=== PATIENT | male | born 1965 | race Caucasian/White ===

== ENCOUNTER 2016-10-16 05:33 | Day surgery (SDC) | payer OTHER ==
[~2016-10-16] VITALS: Ht 193 cm; Wt 108.0 kg
[2016-10-28] MEDS ORDERED: SYNTHROID100 MCG PO (11:26)
[2016-10-28] MEDS ORDERED: COZAAR DPS50 MG PO (11:26)
[2016-10-28] MEDS ORDERED: PLAVIX75 MG PO (11:26)
[2016-10-28] MEDS ORDERED: ASA CHILDREN'S81 MG PO (11:26)
[2016-10-28] MEDS ORDERED: LORTAB 7.5-3251 EACH PO (11:27)
[2016-10-28] MEDS ORDERED: PRALUENT P150 MG/1 M SQ (11:27)
[2016-10-28] MEDS ORDERED: TOPROL XL25 MG PO (11:27)
[2016-10-28] MEDS ORDERED: CRESTOR10 MG PO (11:27)
--- NOTE | 2016-10-29 08:53 | OR ---
ADMIT: 10/16/2016 RM/LOC: [facility] MR#: [id number] 2620 [facility] [address] [place] [phone] RADHA ZAMUDIO [address] [place] [address] Operative/Delivery Room Report SEX: M AGE: 51 : 1965 SURGERY DATE: 10/16/2016 SURGEON: Alexi Cade MD IMMIGRATION COORDINATOR: CARI Hernandez PRE-PROCEDURE DIAGNOSIS: Left inguinal hernia. POSTPROCEDURE DIAGNOSES: 1. Direct left inguinal hernia. 2. Small indirect right inguinal hernia. PROCEDURE: Laparoscopic bilateral inguinal hernia repair with mesh. INDICATIONS: The patient is a 51-year-old, who has had a previous open right inguinal hernia repair many years ago, who has a symptomatic reducible left inguinal hernia, presents for laparoscopic repair. DESCRIPTION OF PROCEDURE: The patient was taken to the operative room, general endotracheal anesthesia was induced. The patient's abdomen was prepped and draped in normal sterile fashion. The case was begun by making a transverse, supraumbilical, 3 cm skin incision using #11 blade. Dissection was carried down through subcutaneous fat using S-shaped retractors. The anterior abdominal wall fascia to the left side of midline was incised vertically with #11 blade for about a centimeter and a half. I retracted the rectus muscle laterally, placed the preperitoneal balloon and the preperitoneal space and insufflated under direct vision. A camera port was placed. CO2 was insufflated and two midline 5 mm ports were placed under direct vision. The case was begun by dissecting out David's ligament bilaterally. I dissected out lateral to the epigastric vessels bilaterally. On the left side, there was a direct inguinal hernia defect that was easily reducible and a small indirect right inguinal hernia defect. I placed medium right and left preformed 3D polypropylene meshes into the preperitoneal space and covered each respective for easily and nicely. I held the lower edge of the mesh as we desufflated the preperitoneal space with our mesh in excellent position. I removed our ports. I injected 0.5% Marcaine subdermally and subfascially for postoperative analgesia, closed the umbilical fascial incision with a running 0 Vicryl suture and the skin sites with interrupted 4- 0 Vicryl subcuticular skin stitches. Wounds were cleaned and dried and dressed. The patient tolerated the procedure without difficulty, transferred to recovery room in good condition. Alexi Cade MD/ beti JOB #: [id number] CC: Alexi Cade, Attending Physician ADMIT: 10/16/2016 RM/LOC: [facility] MR#: [id number] [address] [address] [place] [address] Operative/Delivery Room Report SEX: M AGE: 51 : 1965 Kennedy Avila Family Physician
== END 2016-10-16 10:00 | disposition home or self-care (01) ==
LOC: SSS 05:33
PROC: 0YUA4JZ Supplement Bilateral Inguinal Region with Synthetic Substitute, Percutaneous Endoscopic Approach (ICD-10-PCS; principal; 2016-10-16)
DX: K40.20 Bilateral inguinal hernia, without obstruction or gangrene, not specified as recurrent (principal); E03.9 Hypothyroidism, unspecified; E78.00 Pure hypercholesterolemia, unspecified; I10 Essential (primary) hypertension; I25.10 Atherosclerotic heart disease of native coronary artery without angina pectoris; Z79.82 Long term (current) use of aspirin; Z79.899 Other long term (current) drug therapy; Z95.1 Presence of aortocoronary bypass graft; Z86.73 Personal history of transient ischemic attack (TIA), and cerebral infarction without residual deficits

== ENCOUNTER 2016-10-22 19:28 | Inpatient (IN) | payer OTHER ==
[~2016-10-22] VITALS: Ht 193 cm; Wt 119.0 kg
[2016-10-28] MEDS ORDERED: SYNTHROID100 MCG PO (11:26)
[2016-10-28] MEDS ORDERED: COZAAR DPS50 MG PO (11:26)
[2016-10-28] MEDS ORDERED: PLAVIX75 MG PO (11:26)
[2016-10-28] MEDS ORDERED: ASA CHILDREN'S81 MG PO (11:26)
[2016-10-28] MEDS ORDERED: CRESTOR10 MG PO (11:27)
[2016-10-28] MEDS ORDERED: LORTAB 7.5-3251 EACH PO (11:27)
[2016-10-28] MEDS ORDERED: PRALUENT P150 MG/1 M SQ (11:27)
[2016-10-28] MEDS ORDERED: TOPROL XL25 MG PO (11:27)
--- NOTE | 2016-10-30 19:06 | ER ---
ADMIT: 10/22/2016 RM/LOC: 314 [facility] MR#: [id number] [address] [address] RADHA ZAMUDIO [address] [place] [address] Emergency Room Report SEX: M AGE: 51 : 1965 DATE: 10/22/2016 HISTORY OF PRESENT ILLNESS: The patient is a 51-year-old male with a past medical history of coronary artery disease, status post 6-vessel CABG, who is on Plavix and aspirin and came to the ER with chief complaint of lower abdominal pain, which started gradually, increased in severity, it started at 5 p.m. today, the patient had 1 bowel movement at 5 p.m. and it was normal, the patient did not have any nausea or vomiting, pain increased in severity and is sharp and increases with palpation of the lower abdomen, right lower quadrant, left lower quadrant, and suprapubic area. The patient states any movement or pressing over the area increases the pain. The patient had a laparoscopic hernia repair last week in the hospital. The patient is taking still aspirin and Plavix allegedly. PHYSICAL EXAMINATION: VITAL SIGNS: In the ER, the patient was mildly tachycardic, blood pressure was holding, with a systolic of 110 and diastolic of 80s. The patient was afebrile. GENERAL: The patient was in moderate to severe pain. Head and neck were noncontributory CHEST: Clear to auscultation. HEART: Normal cardiac sounds. ABDOMEN: Tender in the lower quadrants and also was mildly guarding in the right lower quadrant and left lower quadrant. The patient did not have any rebound tenderness. The rest of the physical exam was noncontributory. The patient was started on IV fluids, hemoglobin was 12, CT of the abdomen and pelvis showed large soft tissue structure within the pelvis demonstrating heterogeneous enhancement, there is an increased density in the fat surrounding this as well as free fluid, findings are compatible with the large hematoma. General Surgery was consulted, and the patient was admitted for further followups and treatments of abdominal pain and postsurgical abdominal hematoma. Bryce Kelley MD/ beti JOB #: [id number] CC: Alexi Cade MD, Attending Physician Kennedy Avila MD, Family Physician
--- NOTE | 2016-11-06 13:11 | CO ---
ADMIT: 10/22/2016 RM/LOC: 314 [facility] MR#: [id number] 2620 [facility] [address] [place] [phone] RADHA ZAMUDIO [address] [place] [address] Consultation SEX: M AGE: 51 : 1965 CORRECTED: 11/03/2016 1122 [facility] DATE OF CONSULTATION: 10/23/2016 ATTENDING PHYSICIAN: Alexi Cade MD CONSULTING PHYSICIAN: Claudio Mejia MD REASON FOR CONSULT: Medical evaluation and management in patient with inguinal hernia bleeding. HISTORY OF PRESENT ILLNESS: The patient is a very pleasant, 51-year-old gentleman with extensive cardiac history in the past. About a week ago, he underwent bilateral inguinal hernia repair with mesh. Things had gone well afterwards. He was able to start his Plavix and aspirin right up the day after surgery. He had gone back to work. He felt some extreme pain and swelling in his lower abdomen. He felt like he had to urinate but just could not at all. He had a syncopal episode. He had severe pain and was brought to the ER. He had a repeat syncopal episode. He has not had any since. Pain under better control now. No nausea. No vomiting. No fevers. No chills. No shortness of breath. Prior to this, he has really been in his usual state of health. Very active gentleman. No baseline chest pain at all. PAST MEDICAL HISTORY: 1. Coronary artery disease, status post 6-vessel bypass when he was 46 years old. 2. Hyperlipidemia. 3. Hypothyroidism. 4. Hypertension. MEDICATIONS: 1. Losartan 50 mg daily. 2. Metoprolol ER 25 mg daily. 3. Crestor 10 mg a day. 4. Praluent pen injection every two weeks. 5. Levothyroxine 100 mcg daily. 6. Aspirin 81 mg a day. 7. Plavix 75 mg a day. FAMILY HISTORY: Negative for any cardiac disease surprisingly. Some cholesterol issues in some siblings. They are all older than him. SOCIAL HISTORY: Nonsmoker. Non-drinker. He is accompanied at bedside by his daughter and . REVIEW OF SYSTEMS: As per HPI. Otherwise, fully reviewed and negative. PHYSICAL EXAMINATION: VITAL SIGNS: Temperature 99.3, pulse 78, respiratory rate 14, blood pressure 128/90, he is 98% on room air. ADMIT: 10/22/2016 RM/LOC: 314 [facility] MR#: [id number] [address] [address] RADHA ZAMUDIO [address] [place] [address] Consultation SEX: M AGE: 51 : 1965 GENERAL: He is alert and oriented x3. No acute distress. Very pleasant. Uncomfortable whenever he moves at all around in the bed. HEENT: Normocephalic and atraumatic. Pupils equal, round, and reactive to light and accommodation. Extraocular muscles intact. Moist mucous membranes. NECK: No lymphadenopathy. Soft, supple. Trachea midline. LUNGS: Clear to auscultation bilaterally. No wheezes, rales, or rhonchi. HEART: Regular rate and rhythm. No murmurs, rubs, or gallops. ABDOMEN: He has a tense lower abdomen. He has some bruising at midline. No guarding or rigidity. Tender. EXTREMITIES: No cyanosis, clubbing, or edema. SKIN: No rashes noted. PSYCHIATRIC: Pleasant. Normal mood and affect. Interacts well with family. MUSCULOSKELETAL: 5/5 strength in all 4 extremities, although, limited due to pain in his abdomen regarding moving around in bed. NEUROLOGICAL: No focal deficits noted. Cranial nerves II through XII grossly intact. LABORATORY AND X-RAY DATA: His creatinine is 1.0. White count 15.9, hemoglobin 11.6, platelets 211. Potassium 5.2, lactic acid 3.3. EKG is reviewed. No acute findings. Telemetry is reviewed. No acute findings. CT scan report is reviewed. He has this large hematoma there. ASSESSMENT AND PLAN: 1. Inguinal hernia hematoma, hemorrhage. 2. Syncope, likely vagal. 3. Urinary retention, acute. 4. Coronary artery disease. 5. Acute blood loss anemia. 6. Hypertension. 7. Hyperkalemia. PLAN: At this point in time, we will trend his hemoglobin. I think it is okay to keep Ortiz given his severity of urinary retention and onset. May ADMIT: 10/22/2016 RM/LOC: 314 [facility] MR#: [id number] [address] [place] [phone] [place] [address] Consultation SEX: M AGE: 51 : 1965 consider getting it out maybe tomorrow. We are going continue to work on his pain control. Start some oral agents in addition to the ABRASIVE GRINDER he is currently on. I suspect he is going to have quite a bit of discomfort for quite some time. Trend his hemoglobin and see if continues to drop. Obviously, I will hold his Plavix and aspirin in the meantime. In regard to his hyperkalemia, we will hold his losartan for now and check a BMP in the morning. Concerning it may go up given all the hematoma he has there. Thank you for this consult. We will continue to follow along with this pleasant gentleman. Please call if questions. Claudio Mejia MD/ beti JOB #: [id number] CC: Alexi Cade MD, Attending Physician Kennedy Avila MD, Family Physician CORRECTED: 11/03/2016 1122 NJ[facility]
--- NOTE | 2016-11-07 10:45 | HP ---
ADMIT: 10/22/2016 RM/LOC: 314 [facility] MR#: [id number] 2620 [facility] [address] [place] [phone] RADHA ZAMUDIO [address] [place] [address] Pre-OP History and Physical SEX: M AGE: 51 : 1965 DATE OF SERVICE: 10/22/2016 CHIEF COMPLAINT: Acute onset of pelvic pain and lower abdominal pain. HISTORY OF PRESENT ILLNESS: This is a pleasant 51-year-old male patient who is postop day 6 after a laparoscopic bilateral inguinal hernia that Dr. Cade did on Saturday, last week. The patient states that he has done quite well after surgery and is actually back to work today. He works at a [employer], he was wearing a heavy utility belt at work but at 4 o'clock he said he took his belt off and noticed immediately something was not right, he started complaining of pain in his pelvic and suprapubic area. He noticed some distention and bulging there. He actually had a syncopal episode and EMS was called. He initially did want to go in with EMS but then he had another syncopal episodes so they brought him in directly to [facility]. He was quite uncomfortable with pain in his lower abdomen and down in his pelvis. He feels a lot of pressure, he has been incontinent of urine. He has not felt feverish or chilled with this although he was somewhat clammy and pale after a syncopal episodes. He does have a significant history of cardiac disease and is on chronic Plavix and aspirin and started those up the day after his surgery. Although again he did not have any problems with any bleeding or hematoma until just this afternoon. So, I was asked to see him given these findings. PAST MEDICAL HISTORY: ILLNESSES: Again include the coronary artery disease and hypothyroidism. CURRENT MEDICATIONS: He takes: 1. Aspirin 81 mg. 2. Plavix 75 mg. 3. Synthroid 100 mcg. 4. Losartan 50 mg. 5. Metoprolol 25 mg extended release. 6. Orphenadrine citrate ER 100 mg extended release. 7. Praluent Pen 150 mg injector every two weeks. 8. Rosuvastatin 10 mg daily. ALLERGIES: None. PREVIOUS SURGERIES: He has had previous inguinal hernia repair, open as a child and a varicose vein on left side, and then again the recent laparoscopic bilateral inguinal hernia repairs, six days ago. SOCIAL HISTORY: Denies tobacco and alcohol use currently. FAMILY HISTORY: Noncontributory. REVIEW OF SYSTEMS: A 10-point review of systems essentially negative with exception of his current lower abdominal pain and his recent syncopal episode. ADMIT: 10/22/2016 RM/LOC: 314 [facility] MR#: [id number] [address] [place] [phone] [place] [address] Pre-OP History and Physical SEX: M AGE: 51 : 1965 PHYSICAL EXAMINATION: GENERAL: He is obviously uncomfortable. He is a little pale vital signs are stable at this time. HEENT: Again, does appear somewhat pale. NECK: Supple without lymphadenopathy. LUNGS: Clear bilaterally. HEART: Regular without murmurs. ABDOMEN: Distended, particularly in the infraumbilical region. He does have some bruising there and definite swelling and tenderness to palpation. This extends down into the prepubic region or suprapubic region. EXTREMITIES: Warm and pink without edema. LABORATORY DATA: His hemoglobin today I believe is around 12. He is little acidotic with a CO2 of 17, sodium is 138, potassium 3.6, chloride 108, BUN of 15, creatinine 1.2, glucose of 144. CT scan does show a large preperitoneal hematoma extends down to the pelvis. ASSESSMENT: Preperitoneal hematoma secondary to his aspirin and Plavix use. Postop day six after laparoscopic bilateral inguinal hernia repair. PLAN: He will need to be admitted for pain control. We are going to place him on a Ortiz catheter. He received some fluid, I am going to give another fluid bolus. I am going to type and cross him for a couple units of packed red blood cells, but we will hold that for right now, hopefully we can avoid giving that to him. We will recheck a CBC in the morning. His family does understand all this. The patient understands and I will let Dr. Cade know that he is in the hospital so that he can him tomorrow. Michele Schneider MD/ beti JOB #: [id number] CC: Alexi Cade, Attending Physician Kennedy Avila, Family Physician
--- NOTE | 2016-11-30 10:18 | DS ---
ADMIT: 10/22/2016 RM/LOC: 314 [facility] MR#: [id number] 2620 [facility] [address] [place] [phone] RADHA ZAMUDIO [address] [place] [address] Discharge Summary SEX: M AGE: 51 : 1965 ADMISSION DATE: 10/22/2016 DISCHARGE DATE: 10/26/2016 ADMITTING DIAGNOSIS: 1. Preperitoneal hematoma secondary to anticoagulation. 2. Postop day six bilateral inguinal hernia repair. DISMISSAL DIAGNOSES: 1. Preperitoneal hematoma. 2. Anticoagulation therapy. 3. Cholelithiasis. 4. Postop day six laparoscopic bilateral inguinal hernia repair. 5. Coronary artery disease, status post CABG (coronary artery bypass graft) x6. 6. Hyperlipidemia. 7. Hypothyroidism. 8. Hypertension. PROCEDURES: None. HOSPITAL COURSE: The patient was initially placed as an observation but in the ICU with critical care orders. He was given a morphine PUSH BUTTON SWITCH ASSEMBLER for pain control and anticoagulation medications were held. He was typed and crossed 2 units PRBCs and were held initially. Serial hemoglobins were drawn. TED was consulted to help in the medical management of this case. Morphine PUSH BUTTON SWITCH ASSEMBLER was changed to Dilaudid PUSH BUTTON SWITCH ASSEMBLER. Overall, the patient recovered well while in the hospital. He was changed from observation to inpatient status. He was weaned off his Dilaudid PUSH BUTTON SWITCH ASSEMBLER and was tolerating oral pain medications. He was transferred from ICU to [facility] on 10/23/2016. In the initial first few days, his hemoglobin was dropping but it did stabilize at around day three. He was given 1 unit of PRBCs on 10/24/2016. A Ortiz that was placed upon admission was pulled on 10/24/2016. His hemoglobin continued to stabilize and his pain was controlled. Vitals upon admission showed that his blood pressure was a little low but also stabilized throughout his hospital stay. He was deemed stable and the patient was able to be discharged home on 10/26/2016. DISCHARGE INSTRUCTIONS: 1. Resume aspirin 11/01/2016. ADMIT: 10/22/2016 RM/LOC: 314 [facility] MR#: [id number] 2620 [facility] [address] [place] [phone] [address]UDIO [address] [address] Discharge Summary SEX: M AGE: 51 : 1965 2. Resume clopidogrel 11/08/2016. 3. Follow up with Dr. Cade on November 12. DISCHARGE MEDICATIONS: 1. Aspirin 81 mg daily, start on 11/01/2016. 2. Clopidogrel 75 mg daily, start on 11/08/2016. 3. Levothyroxine 100 mcg daily. 4. Losartan 50 mg daily. 5. Metoprolol 25 mg daily. 6. Rosuvastatin 10 mg daily. 7. Praluent 150 mg/mL 1 mL q.2 weeks. 8. Hydrocodone/acetaminophen 7.5 mg 1-2 tabs q.4 hours p.r.n. pain. CARI Hernandez / Alexi Cade MD / jamig JOB #: [id number] CC: Alexi Cade MD, Attending Physician Kennedy Avila MD, Family Physician
== END 2016-10-26 12:35 | disposition home or self-care (01) | DRG 919 ==
LOC: ER 19:28 → 3ICU 20:40
PROVIDERS: ADMIT Surgery
PROC: 30233N1 Transfusion of Nonautologous Red Blood Cells into Peripheral Vein, Percutaneous Approach (ICD-10-PCS; principal; 2016-10-24)
DX: M96.841 Postprocedural hematoma of a musculoskeletal structure following other procedure (principal); R57.1 Hypovolemic shock; D62 Acute posthemorrhagic anemia; E03.9 Hypothyroidism, unspecified; R55 Syncope and collapse; T45.525A Adverse effect of antithrombotic drugs, initial encounter; T39.015A Adverse effect of aspirin, initial encounter; R33.9 Retention of urine, unspecified; K80.20 Calculus of gallbladder without cholecystitis without obstruction; I10 Essential (primary) hypertension; I25.10 Atherosclerotic heart disease of native coronary artery without angina pectoris; Z95.1 Presence of aortocoronary bypass graft; Z79.02 Long term (current) use of antithrombotics/antiplatelets; Z79.82 Long term (current) use of aspirin; Z98.890 Other specified postprocedural states; Z23 Encounter for immunization